=== PATIENT | male | born 1995 | race Caucasian/White ===

== ENCOUNTER 2021-08-28 08:38 | Emergency (ER) | payer MEDICAID ==
[~2021-08-28] VITALS: Ht 182.9 cm; Wt 81.6 kg
[2021-08-28 08:38] VITALS: BP_SYST 115
--- NOTE | 2021-08-28 08:42 | NUR ---
Patient to ER bed H1 to gown for evaluation. Side rails up.
--- NOTE | 2021-08-28 08:45 | NUR ---
ER at bedside examining patient.
--- NOTE | 2021-08-28 09:00 | NUR ---
PT BIB POL[employer] FOR MED CLEARANCE.
--- NOTE | 2021-08-28 09:40 | NUR ---
Patient given written and verbal discharge instructions and verbalizes understanding. ER MD discussed with patient the results and treatment provided. Patient in stable condition. ID arm band removed. NO Rx given. Patient educated on pain management and to follow up with PMD. Pain Scale 0. Opportunity for questions provided and answered. Medication side effect fact sheet provided.
== END 2021-08-28 09:30 ==
LOC: SED 08:38
DX: S60.212A Contusion of left wrist, initial encounter (principal); Z88.0 Allergy status to penicillin; X58.XXXA Exposure to other specified factors, initial encounter; Y93.89 Activity, other specified; Y92.89 Other specified places as the place of occurrence of the external cause; Y99.8 Other external cause status
CPT/HCPCS: 99283

== ENCOUNTER 2021-12-14 12:21 | Inpatient (IN) | payer MEDICAID ==
[~2021-12-14] VITALS: Ht 182.9 cm; Wt 70.3 kg
[2021-12-14 12:21] VITALS: BP_SYST 110
[2021-12-14] MEDS ORDERED: NACL 0.9% 1,000 ML IV ONE (12:45)
[2021-12-14 13:24] LABS: BASOPHILS % (AUTO) 0.1 % (0.0-2.0); HEMOGLOBIN 14.5 g/dL (14.0-18.0); LYMPHOCYTES % (AUTO) 5.1 % (20.5-51.5); MEAN CORPUSCULAR HEMOGLOBIN 29 pg (27-31); MEAN CORPUSCULAR HGB CONC 34 % (32-36); MEAN CORPUSCULAR VOLUME 85 fL (79.0-98.0); MONOCYTES # (AUTO) 1.5 K/uL (0.0-1.0); MONOCYTES % (AUTO) 7.4 % (1.7-9.3); NEUTROPHILS % (AUTO) 87.4 % (40.0-70.0); PLATELET COUNT (AUTO) 253 K/uL (130-430); RED BLOOD CELL COUNT(AUTO) 5.06 MIL/uL (4.2-6.2); RED CELL DISTRIBUTION WIDTH 12.5 % (9.0-15.0); WHITE BLOOD COUNT (AUTO) 20.6 K/uL (4.8-10.8)
[2021-12-14] MEDS ORDERED: LURA80TA2 PO (14:00)
[2021-12-14] MEDS ORDERED: DESV50TA12 PO (14:00)
[2021-12-14 14:01] LABS: ANION GAP 12 (5-15); CALCIUM 8.7 mg/dL (8.4-11.0); CHLORIDE 104 mmol/L (98-107); CREATININE 1.91 mg/dL (0.55-1.30); GLUCOSE 105 mg/dL (70-99); POTASSIUM 3.9 mmol/L (3.5-5.1); UREA NITROGEN, BLOOD 20 mg/dL (8-21)
[2021-12-14 14:08] LABS: ALANINE AMINOTRANSFERASE 49 U/L (12-78); ALBUMIN 4.5 g/dL (3.4-4.8); ASPARTATE AMINOTRANSFERASE 136 U/L (10-37); TOTAL BILIRUBIN 0.6 mg/dL (0.0-1.0)
[2021-12-14 14:33] LABS: ACETAMINOPHEN < 1 ug/mL (1-30); GFR AFRICAN AMERICAN 55 mL/min (>90)
[2021-12-14 14:34] LABS: ALCOHOL, BLOOD < 3 mg/dL (<10)
[2021-12-14 14:49] LABS: BARBITURATE, URINE NEGATIVE (NEG <=200); BENZODIAZEPINE, URINE NEGATIVE (NEG <=150); CANNABINOID, URINE NEGATIVE (NEG <=50); COCAINE, URINE NEGATIVE (NEG <=150); METHAMPHETAMINES SCREEN,URINE NEGATIVE (NEG <=500); OPIATE, URINE NEGATIVE (NEG <=100); PHENCYCLIDINE SCREEN,URINE NEGATIVE (NEG <=25); UR TRICYCLIC ANTIDEPRESSANTS NEGATIVE (NEG <=300); URINE AMPHETAMINE NEGATIVE (NEG <=500); URINE METHADONE NEGATIVE (NEG <=200); URINE OXYCODONE SCREEN NEGATIVE (NEG <=100); URINE PROPOXYPHENE SCREEN NEGATIVE (NEG <=300)
[2021-12-14] MEDS ORDERED: ONDANSETRON HCL 4 MG/2 ML VIAL IVP PRN (16:00)
[2021-12-14] MEDS ORDERED: D5NS 1,000 ML IV SCH (16:00)
[2021-12-14] MEDS ORDERED: MAGNESIUM SULFATE 50 ML IV PRN (16:00)
[2021-12-14] MEDS ORDERED: LORazepam 2 MG/ML VIAL IVP PRN (16:00)
[2021-12-14] MEDS ORDERED: MORPHINE 2 MG/ML INJ. SYRINGE IVP PRN ×2 (16:00)
[2021-12-14] MEDS ORDERED: POTASSIUM CHLORIDE 20 MEQ TAB.PRT.SR PO PRN (16:00)
[2021-12-14] MEDS ORDERED: MUPIROCIN 2% TOPICAL OINTMENT 22 GM NS PRN (16:00)
[2021-12-14] MEDS ORDERED: DOCUSATE SODIUM 100 MG CAPSULE PO PRN (16:00)
[2021-12-14] MEDS ORDERED: ACETAMINOPHEN 325 MG TABLET PO PRN (16:15)
[2021-12-14 17:47] LABS: BILIRUBIN,URINE NEGATIVE (NEGATIVE); BLOOD, URINE 3+ (NEGATIVE); CLARITY/URINE CLEAR (CLEAR); COLOR,URINE YELLOW (YELLOW); GLUCOSE,URINE NEGATIVE (NEGATIVE); KETONES,URINE 2+ (NEGATIVE); LEUKOCYTE ESTERASE ,URINE NEGATIVE (NEGATIVE); NITRITE, URINE NEGATIVE (NEGATIVE); PROTEIN URINE 2+ (NEGATIVE); UROBILINOGEN,URINE 0.2 (0.2-1.0)
[2021-12-14 17:56] LABS: BACTERIA,URINE None Seen /HPF (None Seen); RBC,URINE 0-3 /HPF (0-3); WBC,URINE 0-3 /HPF (0-3)
[2021-12-14 20:00] VITALS: BP_SYST 126
[2021-12-14 21:00] LABS: LITHIUM 1.27 mEq/L (0.50-1.0)
[2021-12-14] MEDS ORDERED: cefTRIAXone 1 GM IVPB PREMIX 50 ML IV ONE (23:04)
[2021-12-15] VITALS (7 sets, daily range): BP systolic 115–137
[2021-12-15] MEDS: D5NS 1,000 ML IV SCH ×4 (01:24→18:11)
[2021-12-15] MEDS: cefTRIAXone 1 GM in D5W 50 ML IV SCH ×2 (02:17→21:39)
[2021-12-15 02:40] LABS: BASOPHILS % (AUTO) 0.1 % (0.0-2.0); EOSINOPHILS # (AUTO) 0.1 K/uL (0.0-0.4); EOSINOPHILS % (AUTO) 0.7 % (0.0-4.0); HEMATOCRIT 41.6 % (36-54); HEMOGLOBIN 14.3 g/dL (14.0-18.0); LYMPHOCYTES # (AUTO) 2.8 K/uL (1.0-5.5); LYMPHOCYTES % (AUTO) 17.8 % (20.5-51.5); MEAN CORPUSCULAR HEMOGLOBIN 29 pg (27-31); MEAN CORPUSCULAR HGB CONC 34 % (32-36); MEAN CORPUSCULAR VOLUME 85 fL (79.0-98.0); MONOCYTES # (AUTO) 0.9 K/uL (0.0-1.0); MONOCYTES % (AUTO) 5.9 % (1.7-9.3); NEUTROPHILS # (AUTO) 11.8 K/uL (1.8-7.7); NEUTROPHILS % (AUTO) 75.5 % (40.0-70.0); PLATELET COUNT (AUTO) 224 K/uL (130-430); RED CELL DISTRIBUTION WIDTH 12.7 % (9.0-15.0); WHITE BLOOD COUNT (AUTO) 15.6 K/uL (4.8-10.8)
[2021-12-15 03:26] LABS: POTASSIUM 3.5 mmol/L (3.5-5.1)
[2021-12-15 03:27] LABS: CHLORIDE 101 mmol/L (98-107)
[2021-12-15 03:28] LABS: GLUCOSE 94 mg/dL (70-99)
[2021-12-15 03:29] LABS: ASPARTATE AMINOTRANSFERASE 631 U/L (10-37); CALCIUM 8.6 mg/dL (8.4-11.0); CREATININE 1.33 mg/dL (0.55-1.30); GFR AFRICAN AMERICAN 83 mL/min (>90); TOTAL BILIRUBIN 0.8 mg/dL (0.0-1.0); UREA NITROGEN, BLOOD 17 mg/dL (8-21)
[2021-12-15 03:30] LABS: ALBUMIN 3.9 g/dL (3.4-4.8)
[2021-12-15 03:39] LABS: ANION GAP 10 (5-15)
[2021-12-15 03:40] LABS: ALANINE AMINOTRANSFERASE 119 U/L (12-78)
[2021-12-15 04:04] LABS: VALPROIC ACID < 3 ug/mL (50-100)
[2021-12-15 04:22] LABS: CARBAMAZEPINE (TEGRETOL) < 0 ug/mL (4-12); PHENYTOIN (DILANTIN) < 0.5 ug/mL (10.0-20.0)
[2021-12-15 05:51] LABS: ALBUMIN 3.8 g/dL (3.4-4.8); CALCIUM 8.4 mg/dL (8.4-11.0); CREATININE 1.21 mg/dL (0.55-1.30); POTASSIUM 3.8 mmol/L (3.5-5.1); TOTAL BILIRUBIN 0.6 mg/dL (0.0-1.0)
[2021-12-15] MEDS ORDERED: COMMUNICATION ORDER XX ONE (06:00)
[2021-12-15] MEDS ORDERED: ACETYLCYSTEINE 20% 6000 MG/30 ML VIAL (ORAL) PO ONE (09:00)
[2021-12-15] MEDS ORDERED: DESVENLAFAXINE 50 MG PO SCH (09:00)
[2021-12-15 09:33] LABS: POTASSIUM 3.4 mmol/L (3.5-5.1)
[2021-12-15 09:34] LABS: ALBUMIN 3.7 g/dL (3.4-4.8); CALCIUM 8.5 mg/dL (8.4-11.0); CREATININE 1.05 mg/dL (0.55-1.30); TOTAL BILIRUBIN 0.7 mg/dL (0.0-1.0)
[2021-12-15 10:31] LABS: LITHIUM 0.05 mEq/L (0.50-1.0)
[2021-12-15 11:43] LABS: LITHIUM 0.05 mEq/L (0.50-1.0)
[2021-12-15 11:44] LABS: LITHIUM 0.04 mEq/L (0.50-1.0)
[2021-12-15 12:02] LABS: ALBUMIN 3.5 g/dL (3.4-4.8); CALCIUM 8.8 mg/dL (8.4-11.0); CREATININE 1.05 mg/dL (0.55-1.30); POTASSIUM 3.2 mmol/L (3.5-5.1); TOTAL BILIRUBIN 0.7 mg/dL (0.0-1.0)
[2021-12-15 13:05] LABS: LITHIUM 0.05 mEq/L (0.50-1.0)
[2021-12-15 14:56] LABS: ALANINE AMINOTRANSFERASE 139 U/L (12-78); ALBUMIN 3.2 g/dL (3.4-4.8); ANION GAP 3 (5-15); ASPARTATE AMINOTRANSFERASE 589 U/L (10-37); CALCIUM 8.4 mg/dL (8.4-11.0); CHLORIDE 101 mmol/L (98-107); GLUCOSE 99 mg/dL (70-99); POTASSIUM 3.7 mmol/L (3.5-5.1); TOTAL BILIRUBIN 0.5 mg/dL (0.0-1.0); UREA NITROGEN, BLOOD 14 mg/dL (8-21)
[2021-12-15 15:15] LABS: GFR AFRICAN AMERICAN 103 mL/min (>90)
[2021-12-15 17:18] LABS: LITHIUM < 0.2 mEq/L (0.50-1.0)
[2021-12-15 20:22] LABS: LITHIUM 0.2 mEq/L (0.50-1.0)
[2021-12-15 20:32] LABS: LITHIUM < 0.2 mEq/L (0.50-1.0)
[2021-12-15 20:34] LABS: ANION GAP 7 (5-15); CHLORIDE 103 mmol/L (98-107); GLUCOSE 110 mg/dL (70-99)
[2021-12-15 20:35] LABS: ALBUMIN 3.3 g/dL (3.4-4.8); CALCIUM 8.3 mg/dL (8.4-11.0); GFR AFRICAN AMERICAN 130 mL/min (>90); UREA NITROGEN, BLOOD 15 mg/dL (8-21)
[2021-12-15 20:36] LABS: ASPARTATE AMINOTRANSFERASE 564 U/L (10-37)
[2021-12-15 20:37] LABS: ALANINE AMINOTRANSFERASE 148 U/L (12-78)
[2021-12-15 20:41] LABS: TOTAL BILIRUBIN 0.6 mg/dL (0.0-1.0)
[2021-12-15 23:05] LABS: POTASSIUM 4.1 mmol/L (3.5-5.1)
[2021-12-15 23:06] LABS: CALCIUM 8.4 mg/dL (8.4-11.0); TOTAL BILIRUBIN 0.5 mg/dL (0.0-1.0)
[2021-12-15 23:07] LABS: ALBUMIN 3.2 g/dL (3.4-4.8)
[2021-12-16] VITALS: BP_SYST 118
[2021-12-16 00:20] LABS: ALBUMIN 3.2 g/dL (3.4-4.8); CALCIUM 8.3 mg/dL (8.4-11.0); CREATININE 0.92 mg/dL (0.55-1.30); POTASSIUM 3.4 mmol/L (3.5-5.1); TOTAL BILIRUBIN 0.5 mg/dL (0.0-1.0)
[2021-12-16 03:47] LABS: ALBUMIN 3.4 g/dL (3.4-4.8); CALCIUM 8.4 mg/dL (8.4-11.0); CREATININE 0.98 mg/dL (0.55-1.30); TOTAL BILIRUBIN 0.6 mg/dL (0.0-1.0)
[2021-12-16 04:00] LABS: POTASSIUM 3.6 mmol/L (3.5-5.1)
[2021-12-16] MEDS: D5NS 1,000 ML IV SCH ×2 (04:11→13:44)
[2021-12-16 07:22] LABS: BASOPHILS % (AUTO) 0.2 % (0.0-2.0); EOSINOPHILS # (AUTO) 0.8 K/uL (0.0-0.4); EOSINOPHILS % (AUTO) 9.3 % (0.0-4.0); HEMATOCRIT 37.7 % (36-54); HEMOGLOBIN 13.2 g/dL (14.0-18.0); LYMPHOCYTES # (AUTO) 2.1 K/uL (1.0-5.5); LYMPHOCYTES % (AUTO) 25.3 % (20.5-51.5); MEAN CORPUSCULAR HEMOGLOBIN 29 pg (27-31); MEAN CORPUSCULAR HGB CONC 35 % (32-36); MEAN CORPUSCULAR VOLUME 84 fL (79.0-98.0); MONOCYTES # (AUTO) 0.6 K/uL (0.0-1.0); NEUTROPHILS # (AUTO) 4.7 K/uL (1.8-7.7); NEUTROPHILS % (AUTO) 58.2 % (40.0-70.0); PLATELET COUNT (AUTO) 167 K/uL (130-430); RED BLOOD CELL COUNT(AUTO) 4.49 MIL/uL (4.2-6.2); RED CELL DISTRIBUTION WIDTH 12.6 % (9.0-15.0); WHITE BLOOD COUNT (AUTO) 8.1 K/uL (4.8-10.8)
[2021-12-16 07:57] LABS: INR 1.2 (0.80-1.20); PROTHROMBIN TIME 12.1 SECS (9.5-12.5)
[2021-12-16 08:00] VITALS: BP_SYST 132
[2021-12-16 10:43] LABS: LITHIUM 0.06 mEq/L (0.50-1.0)
[2021-12-16 12:46] LABS: CALCIUM 8.1 mg/dL (8.4-11.0); CREATININE 0.7 mg/dL (0.55-1.30); POTASSIUM 3.9 mmol/L (3.5-5.1)
[2021-12-16 12:47] LABS: ALBUMIN 3.3 g/dL (3.4-4.8); TOTAL BILIRUBIN 0.5 mg/dL (0.0-1.0)
[2021-12-16 12:48] LABS: BILIRUBIN,DIRECT 0.1 mg/dL (0.0-0.3)
[2021-12-16 13:00] VITALS: BP_SYST 123
[2021-12-16 18:03] LABS: TOTAL IRON BIND. CAPACITY 232 ug/dL (250-450)
[2021-12-16 20:00] VITALS: BP_SYST 146
[2021-12-16] MEDS: cefTRIAXone 1 GM in D5W 50 ML IV SCH (21:42)
[2021-12-17 00:28] VITALS: BP_SYST 142
[2021-12-17 06:06] LABS: ALPHA-1-ANTITRYPSIN, S 156 mg/dL (95-164)
[2021-12-17 07:07] LABS: HEPATITIS A AB, IgM Negative (Negative); HEPATITIS B CORE AB, IgM Negative (Negative); HEPATITIS B SURFACE AG Negative (Negative)
[2021-12-17 07:33] LABS: INR 1.1 (0.80-1.20); PROTHROMBIN TIME 11.5 SECS (9.5-12.5)
[2021-12-17 07:51] LABS: ALBUMIN 3.2 g/dL (3.4-4.8); BILIRUBIN,DIRECT 0.1 mg/dL (0.0-0.3); CALCIUM 8.5 mg/dL (8.4-11.0); CREATININE 0.72 mg/dL (0.55-1.30); POTASSIUM 3.5 mmol/L (3.5-5.1); TOTAL BILIRUBIN 0.4 mg/dL (0.0-1.0)
[2021-12-17 08:10] VITALS: BP_SYST 124
[2021-12-17] MEDS: D5NS 1,000 ML IV SCH ×2 (09:39→17:45)
[2021-12-17] MEDS ORDERED: KETOROLAC TROMETHAMINE 15 MG VIAL IVP ONE (11:45)
[2021-12-17 12:02] VITALS: BP_SYST 141
[2021-12-17 12:06] LABS: FERRITIN 132 ng/mL (30-400)
[2021-12-17 14:18] LABS: BASOPHILS % (AUTO) 0.6 % (0.0-2.0); EOSINOPHILS # (AUTO) 0.8 K/uL (0.0-0.4); EOSINOPHILS % (AUTO) 11.1 % (0.0-4.0); HEMATOCRIT 39.1 % (36-54); HEMOGLOBIN 13.4 g/dL (14.0-18.0); LYMPHOCYTES # (AUTO) 1.8 K/uL (1.0-5.5); LYMPHOCYTES % (AUTO) 26.1 % (20.5-51.5); MEAN CORPUSCULAR HEMOGLOBIN 29 pg (27-31); MEAN CORPUSCULAR HGB CONC 34 % (32-36); MEAN CORPUSCULAR VOLUME 85 fL (79.0-98.0); MONOCYTES # (AUTO) 0.5 K/uL (0.0-1.0); MONOCYTES % (AUTO) 7.1 % (1.7-9.3); NEUTROPHILS # (AUTO) 3.8 K/uL (1.8-7.7); NEUTROPHILS % (AUTO) 55.1 % (40.0-70.0); PLATELET COUNT (AUTO) 194 K/uL (130-430); RED BLOOD CELL COUNT(AUTO) 4.62 MIL/uL (4.2-6.2); RED CELL DISTRIBUTION WIDTH 12.4 % (9.0-15.0)
[2021-12-17 16:52] VITALS: BP_SYST 137
[2021-12-17 20:02] VITALS: BP_SYST 105
[2021-12-17] MEDS: ACETAMINOPHEN 325 MG TABLET PO PRN (21:21)
[2021-12-17] MEDS: cefTRIAXone 1 GM in D5W 50 ML IV SCH (21:24)
[2021-12-18 00:03] VITALS: BP_SYST 129
[2021-12-18 00:54] LABS: CREATININE 0.7 mg/dL (0.55-1.30)
[2021-12-18 00:58] LABS: TOTAL BILIRUBIN 0.5 mg/dL (0.0-1.0)
[2021-12-18 01:04] LABS: LITHIUM 0.07 mEq/L (0.50-1.0)
[2021-12-18] MEDS: D5NS 1,000 ML IV SCH ×3 (02:11→21:25)
[2021-12-18 07:36] LABS: CALCIUM 8.7 mg/dL (8.4-11.0); CREATININE 0.69 mg/dL (0.55-1.30); POTASSIUM 3.8 mmol/L (3.5-5.1)
[2021-12-18 08:00] VITALS: BP_SYST 129
[2021-12-18 10:52] LABS: ALBUMIN 3.2 g/dL (3.4-4.8); BILIRUBIN,DIRECT 0.1 mg/dL (0.0-0.3); TOTAL BILIRUBIN 0.4 mg/dL (0.0-1.0)
[2021-12-18 12:29] VITALS: BP_SYST 129
[2021-12-18 12:29] LABS: CALCIUM 8.9 mg/dL (8.4-11.0); CREATININE 0.74 mg/dL (0.55-1.30); POTASSIUM 3.9 mmol/L (3.5-5.1)
[2021-12-18 13:37] LABS: BASOPHILS % (AUTO) 0.8 % (0.0-2.0); EOSINOPHILS # (AUTO) 0.8 K/uL (0.0-0.4); EOSINOPHILS % (AUTO) 12.9 % (0.0-4.0); HEMATOCRIT 39.4 % (36-54); HEMOGLOBIN 13.4 g/dL (14.0-18.0); LYMPHOCYTES # (AUTO) 1.6 K/uL (1.0-5.5); LYMPHOCYTES % (AUTO) 26.2 % (20.5-51.5); MEAN CORPUSCULAR HEMOGLOBIN 29 pg (27-31); MEAN CORPUSCULAR HGB CONC 34 % (32-36); MEAN CORPUSCULAR VOLUME 85 fL (79.0-98.0); MONOCYTES # (AUTO) 0.5 K/uL (0.0-1.0); MONOCYTES % (AUTO) 7.8 % (1.7-9.3); NEUTROPHILS # (AUTO) 3.3 K/uL (1.8-7.7); NEUTROPHILS % (AUTO) 52.3 % (40.0-70.0); PLATELET COUNT (AUTO) 194 K/uL (130-430); RED BLOOD CELL COUNT(AUTO) 4.62 MIL/uL (4.2-6.2); RED CELL DISTRIBUTION WIDTH 12.4 % (9.0-15.0); WHITE BLOOD COUNT (AUTO) 6.2 K/uL (4.8-10.8)
[2021-12-18 16:19] VITALS: BP_SYST 125
[2021-12-18 17:44] LABS: CALCIUM 8.1 mg/dL (8.4-11.0)
[2021-12-18 17:45] LABS: ALBUMIN 3.3 g/dL (3.4-4.8)
[2021-12-18 19:45] VITALS: BP_SYST 139
[2021-12-18] MEDS: ACETAMINOPHEN 325 MG TABLET PO PRN (21:24)
[2021-12-18] MEDS: cefTRIAXone 1 GM in D5W 50 ML IV SCH (21:24)
[2021-12-18 22:03] LABS: FREE T4 (FREE THYROXINE) 0.8 ng/dL (0.6-1.6); THYROID STIMULATING HORMONE 0.76 uIu/mL (0.34-4.82)
[2021-12-19 01:28] VITALS: BP_SYST 130
[2021-12-19 07:30] LABS: BASOPHILS % (AUTO) 0.4 % (0.0-2.0); EOSINOPHILS % (AUTO) 10.6 % (0.0-4.0); HEMATOCRIT 39.7 % (36-54); HEMOGLOBIN 13.7 g/dL (14.0-18.0); LYMPHOCYTES # (AUTO) 2.1 K/uL (1.0-5.5); LYMPHOCYTES % (AUTO) 21.6 % (20.5-51.5); MEAN CORPUSCULAR HEMOGLOBIN 29 pg (27-31); MEAN CORPUSCULAR HGB CONC 35 % (32-36); MEAN CORPUSCULAR VOLUME 84 fL (79.0-98.0); MONOCYTES # (AUTO) 0.8 K/uL (0.0-1.0); MONOCYTES % (AUTO) 7.9 % (1.7-9.3); NEUTROPHILS # (AUTO) 5.8 K/uL (1.8-7.7); NEUTROPHILS % (AUTO) 59.5 % (40.0-70.0); PLATELET COUNT (AUTO) 202 K/uL (130-430); RED BLOOD CELL COUNT(AUTO) 4.72 MIL/uL (4.2-6.2); RED CELL DISTRIBUTION WIDTH 12.1 % (9.0-15.0); WHITE BLOOD COUNT (AUTO) 9.7 K/uL (4.8-10.8)
[2021-12-19 08:03] VITALS: BP_SYST 108
[2021-12-19 08:04] LABS: ALBUMIN 3.4 g/dL (3.4-4.8); CALCIUM 8.8 mg/dL (8.4-11.0); CREATININE 0.82 mg/dL (0.55-1.30); POTASSIUM 4.5 mmol/L (3.5-5.1); TOTAL BILIRUBIN 0.3 mg/dL (0.0-1.0)
[2021-12-19 10:47] LABS: CREATINE KINASE MB 2.3 ng/mL (0-3.6)
[2021-12-19 10:50] LABS: LITHIUM 0.05 mEq/L (0.50-1.0)
[2021-12-19 10:51] LABS: LITHIUM 0.06 mEq/L (0.50-1.0)
[2021-12-19] MEDS: D5NS 1,000 ML IV SCH ×3 (11:30→21:00)
[2021-12-19 11:37] VITALS: BP_SYST 119
[2021-12-19 16:13] VITALS: BP_SYST 123
[2021-12-19 19:31] VITALS: BP_SYST 144
[2021-12-19] MEDS: ACETAMINOPHEN 325 MG TABLET PO PRN (20:58)
[2021-12-19] MEDS: cefTRIAXone 1 GM in D5W 50 ML IV SCH (20:58)
[2021-12-20] VITALS: BP_SYST 126
[2021-12-20 07:59] LABS: ALBUMIN 3.4 g/dL (3.4-4.8); CALCIUM 8.6 mg/dL (8.4-11.0); CREATININE 0.84 mg/dL (0.55-1.30); TOTAL BILIRUBIN 0.2 mg/dL (0.0-1.0)
[2021-12-20 08:38] VITALS: BP_SYST 117
[2021-12-20 11:55] VITALS: BP_SYST 114
[2021-12-20 15:06] LABS: ANTI-SMOOTH MUSCLE AB 7 Units (0-19); LIVER-KIDNEY MICROSOMAL AB 1.8 Units (0.0-20.0)
[2021-12-20 16:15] VITALS: BP_SYST 120
[2021-12-20 20:00] VITALS: BP_SYST 116
[2021-12-20] MEDS: D5NS 1,000 ML IV SCH (21:15)
[2021-12-20] MEDS: cefTRIAXone 1 GM in D5W 50 ML IV SCH (21:16)
[2021-12-21 07:58] LABS: ALBUMIN 3.2 g/dL (3.4-4.8); CALCIUM 8.7 mg/dL (8.4-11.0); CREATININE 0.8 mg/dL (0.55-1.30); POTASSIUM 4.4 mmol/L (3.5-5.1); TOTAL BILIRUBIN 0.2 mg/dL (0.0-1.0)
[2021-12-21 08:30] VITALS: BP_SYST 126
[2021-12-21 09:30] LABS: CREATINE KINASE MB 1.6 ng/mL (0-3.6)
[2021-12-21 12:05] VITALS: BP_SYST 123
[2021-12-21] MEDS: D5NS 1,000 ML IV SCH ×2 (15:44→17:06)
[2021-12-21 16:00] VITALS: BP_SYST 128
[2021-12-21 19:00] VITALS: BP_SYST 130
[2021-12-21 20:00] VITALS: BP_SYST 130
[2021-12-22] VITALS: BP_SYST 127
[2021-12-22] MEDS: D5NS 1,000 ML IV SCH ×3 (00:04→23:44)
[2021-12-22 05:03] VITALS: BP_SYST 123
[2021-12-22 08:00] VITALS: BP_SYST 105
[2021-12-22 08:47] LABS: ALBUMIN 3.2 g/dL (3.4-4.8); CALCIUM 8.5 mg/dL (8.4-11.0); CREATININE 0.75 mg/dL (0.55-1.30); POTASSIUM 4.2 mmol/L (3.5-5.1); TOTAL BILIRUBIN 0.1 mg/dL (0.0-1.0)
[2021-12-22 10:17] LABS: CKMB RELATIVE INDEX 0.1 (0.0-2.9); CREATINE KINASE MB 2.8 ng/mL (0-3.6)
[2021-12-22 13:06] LABS: ATYPICAL pANCA <1:20 titer (Neg:<1:20); CYTOPLASMIC (C-ANCA) <1:20 titer (Neg:<1:20); CYTOPLASMIC (P-ANCA) <1:20 titer (Neg:<1:20)
[2021-12-22 16:00] VITALS: BP_SYST 99
[2021-12-22 20:00] VITALS: BP_SYST 116
[2021-12-23] VITALS: BP_SYST 119
[2021-12-23] MEDS: D5NS 1,000 ML IV SCH ×2 (07:20→18:22)
[2021-12-23 08:47] LABS: ALBUMIN 3.5 g/dL (3.4-4.8); CALCIUM 8.7 mg/dL (8.4-11.0); CREATININE 0.86 mg/dL (0.55-1.30); POTASSIUM 4.9 mmol/L (3.5-5.1); TOTAL BILIRUBIN 0.1 mg/dL (0.0-1.0)
[2021-12-23 09:11] LABS: CKMB RELATIVE INDEX 0.3 (0.0-2.9); CREATINE KINASE MB 4.1 ng/mL (0-3.6)
[2021-12-23 12:18] VITALS: BP_SYST 115
[2021-12-23 16:00] VITALS: BP_SYST 117
[2021-12-23 20:00] VITALS: BP_SYST 118
[2021-12-23 20:39] VITALS: BP_SYST 118
[2021-12-24] VITALS: BP_SYST 118
[2021-12-24] MEDS: D5NS 1,000 ML IV SCH (02:04)
[2021-12-24 08:03] VITALS: BP_SYST 111
[2021-12-24 09:42] VITALS: BP_SYST 111
== END 2021-12-24 11:25 | disposition home or self-care (01) | DRG 812 ==
LOC: SED 12:21 → STU 15:47
PROVIDERS: ADMIT General Practice; ATTEND General Practice
DX: T43.591A Poisoning by other antipsychotics and neuroleptics, accidental (unintentional), initial encounter (principal); N17.0 Acute kidney failure with tubular necrosis; G93.41 Metabolic encephalopathy; R74.01 Elevation of levels of liver transaminase levels; F31.9 Bipolar disorder, unspecified; E87.1 Hypo-osmolality and hyponatremia; Z20.822 Contact with and (suspected) exposure to COVID-19; Z88.0 Allergy status to penicillin; Z79.899 Other long term (current) drug therapy; Y92.89 Other specified places as the place of occurrence of the external cause
CPT/HCPCS: 36415; 71045; 76700-TC; 80048; 80053; 80074; 80076; 80156; 80164; 80178; 80185; 80307; 81000; 82103; 82248; 82390; 82550; 82553; 82728; 82977; 83036; 83516; 83540; 83550; 83605; 83735; 84439; 84443; 85025; 85610-TC; 86256; 86376; 87040; 93005; 96365; 96375; 99285; G0378; G0480; G0481; G0482; J0696; J2270; J3475; J7060; J7608